=== PATIENT | female | born 1985 | race African-American/Black ===

== ENCOUNTER 2016-10-12 12:10 | Emergency (ER) ==
[2016-10-12 12:16] VITALS: BP 152/86; TEMP 98.9; BMI 47.9
--- NOTE | 2016-10-12 12:25 | ED.PDOC ---
General ED Provider: Dr. SHARIF ALANIZ JR Chief Complaint: Headache Stated Complaint: onset sore throat--after work yesterday developed sore throat- -headache and hot flashes-feel like sinuses are draining all the time headache/ sore throat[End]3 days 98.9 80 20 98% 152/86 06/28 Time Seen by Physician: 12:23 Mode of Arrival: Walk-In Information Source: Patient Exam Limitations: No limitations Primary Care Provider: VLADIMIR HEARN Nursing and Triage Documentation Reviewed and Agree: No Review of Systems - Review Of Systems Constitutional: Reports: Fever, Malaise, Weakness Eyes: Reports: No symptoms Ears, Nose, Mouth, Throat: Reports: No symptoms Respiratory: Reports: Cough Cardiac: Reports: No symptoms : Reports: No symptoms Musculoskeletal: Reports: Muscle pain Skin: Reports: No symptoms Neurological: Reports: Headache Endocrine: Reports: No symptoms Hematologic/Lymphatic: Reports: No symptoms All Other Systems: Other Past Medical History - Past Medical History Previously Healthy: Yes Endocrine: Reports: DM 2, Hypothyroid Cardiovascular: Reports: None Respiratory: Reports: None Hematological: Reports: None Gastrointestinal: Reports: None Genitourinary: Reports: None Neuro/Psych: Reports: None Musculoskeletal: Reports: None Cancer: Reports: None Last Menstrual Period: last week Other Pertinent Past Medical History: B-12 DEFIECIENCY - Surgical History General Surgical History: Reports: (D&C), Orthopedic (, D&C, right carpal tunnel. B-12 DEFIECIENCY dm thy), Unknown - Family History Family History: Reports: Unknown - Social History Smoking Status: Never smoker Hx Substance Use: No Alcohol Screening: None Physical Exam - Physical Exam Appearance: Ill-appearing, Obese Ill-appearing: Moderate Pain Distress: Moderate Eyes: BRENNON, EOMI, Conjunctiva clear ENT: Ears normal (sinus tenderness), Nose normal, Oropharynx normal Neck: Supple Respiratory: Airway patent, Breath sounds clear, Breath sounds equal, Respirations nonlabored Cardiovascular: RRR, Pulses normal, No rub, No murmur GI/: Soft, Nontender, No masses, Bowel sounds normal, No Organomegaly Musculoskeletal: Normal strength, ROM intact, No edema, No calf tenderness Skin: Warm, Dry, Normal color Neurological: Sensation intact, Motor intact, Reflexes intact, Cranial nerves intact, Alert, Oriented Psychiatric: Affect appropriate, Mood appropriate Critical Care Note - Critical Care Note Total Time (mins): 0 Course - Course Orders, Labs, Meds: Lab Review 10/12/16 10/12/16 12:27 12:40 Urine Test Negative Influenza A (Rapid) Negative Influenza B (Rapid) Negative Orders Category Date Time Status ACCUCHECK (ED) [ED ACCUCHECK ASSESSMENT] .ONCE EMERGENCY 10/12/16 12:44 Active ACCUCHECK Stat LAB 10/12/16 12:33 Stop Req MOLECULAR GROUP A STREP Stat LAB 10/12/16 12:30 Results TEST URINE [URINE ] Stat LAB 10/12/16 12:40 Completed RAPID FLU A/B Stat LAB 10/12/16 12:27 Completed STREP SCREEN Stat LAB 10/12/16 12:[address] HEAD W/O CONTRAST Stat RADS 10/12/16 12:31 Completed Vital Signs: Temp Pulse Resp BP Pulse Ox 10/12/16 12:12 98.9 F 80 20 152/86 H 98 Departure - Departure Time of Disposition: 13:56 Disposition: HOME SELF-CARE Discharge Problem: Headache, URTI (acute upper respiratory infection) Sinusitis, acute Qualifiers: Sinusitis location: unspecified location Recurrence: not specified as recurrent Qualifier Code: (J01.90) Acute sinusitis, unspecified Instructions: Sinusitis (ED), Upper Respiratory Infection (ED) Condition: Good Pt referred to PMD for follow-up: Yes Additional Instructions: antihistamine decongestant for congestion cough medication as needed increase fluids may return to work when no fever for 12 hours Prescriptions: Naproxen [Naprosyn] 500 mg PO Q12HR PRN #30 tablet PRN Reason: PAIN Guaifenesin/Codeine Phosphate [Robitussin AC Syrup] 10 ml PO Q6H PRN #240 ml PRN Reason: Cough Loratadine/Pseudoephedrine [Claritin-D 12 Hour Tablet] 1 each PO BID PRN #60 tab.er.12h PRN Reason: Allergy Symptoms Allergies/Adverse Reactions: Allergies No Known Allergies Allergy (Verified 10/12/16 12:17) Home Medications: Ambulatory Orders Cyanocobalamin (Vitamin B-12) [Vitamin B-12] 1,000 mcg PO MONTHLY 05/29/14 Levothyroxine Sodium [Synthroid] 75 mcg PO QDAC 05/13/15 Metformin HCl [Glucophage] 1,000 mg PO DAILYWM 05/13/15 Sitagliptin Phosphate [Januvia] 25 mg PO DAILY 05/13/15 Control Pill 1 tab PO DAILY 08/28/16 Guaifenesin/Codeine Phosphate [Robitussin AC Syrup] 10 ml PO Q6H PRN #240 ml Loratadine/Pseudoephedrine [Claritin-D 12 Hour Tablet] 1 each PO BID PRN #60 tab.er.12h 10/12/16 Naproxen [Naprosyn] 500 mg PO Q12HR PRN #30 tablet 10/12/16
[2016-10-12 12:44] LABS: URINE PREGNANCY INTERNAL QC INTERNAL QC VALID
[2016-10-12 12:49] LABS: FLU INTERNAL QC INTERNAL QC VALID; RAPID FLU A NEGATIVE (NEGATIVE); RAPID FLU B NEGATIVE (NEGATIVE)
--- NOTE | 2016-10-12 13:49 | CT ---
EXAM: CT head without contrast HISTORY: Headache with frontal tenderness COMPARISON: None TECHNIQUE: Serial axial images of the brain were obtained from the skull base to the vertex without IV contrast. FINDINGS: The ventricles, cisterns and sulci are normal. The vines-white matter junction is maintai valerie. No midline shift or mass is identified. There is no abnormal intra or extra-axial fluid colle ction. The paranasal sinuses and mastoid air cells are clear. The osseous calvarium is intact. IMPRESSION: No acute intracranial abnormality or hemorrhage. If further evaluation is clinically in dicated, MRI may be obtained.
== END 2016-10-12 14:15 | disposition home or self-care (01) ==
LOC: ED 12:10
DX: J06.9 Acute upper respiratory infection, unspecified (principal); J01.90 Acute sinusitis, unspecified; E11.9 Type 2 diabetes mellitus without complications; Z79.84 Long term (current) use of oral hypoglycemic drugs; Z79.899 Other long term (current) drug therapy
CPT/HCPCS: 81025; 82962; 87651; 87804; 87880; 99283

== ENCOUNTER 2017-10-04 23:30 | Emergency (ER) ==
[2017-10-04 23:45] VITALS: TEMP 98.9; BMI 46.3
--- NOTE | 2017-10-05 00:30 | ED.PDOC ---
General ED Provider: Dr. JOHNNA SNOW Chief Complaint: Non-specific Complaint Stated Complaint: pateint states that she started feeling cramps on her feet and body . Not sure why. Has had it in the past but has not been see for it. She is diabetic and is on oral medications. Also complains of feeling flushed on her body. Denies any chest pain. Time Seen by Physician: 00:27 Mode of Arrival: Walk-In Information Source: Patient Exam Limitations: No limitations Primary Care Provider: VLADIMIR HEARN Nursing and Triage Documentation Reviewed and Agree: Yes Reviewed sepsis parameters & appropriate labs ordered?: Yes System Inflammatory Response Syndrome: Not Applicable Sepsis Protocol: For patient's 13 years and over: Temp is 96.8 and below OR 101 and greater Pulse >90 BPM Resp >20/minute Acutely Altered Mental Status Are patient's symptoms suggestive of a new infection, such as: -Pneumonia -Skin, Soft Tissue -Endocarditis -UTI -Bone, Joint Infection -Implantable Device -Acute Abdominal Infection -Wound Infection -Meningitis -Blood Stream Catheter Infection -Unknown System Inflammatory Response Syndrome: Not Applicable Miscellaneous Complaint Exam - Complex/Multi-System Complaint/Exam Onset/Duration: 3 hours Symptoms Are: Still present Initial Severity: Moderate Current Severity: Mild Location of Pain: feel and hands Character: cramping on feet and upper ext Aggravating: movement Alleviating: nothing Associated Signs and Symptoms: Denies: Decreased responsiveness, Confusion, Agitation, Dizziness, Weakness, Syncope, Headache, Short of air, Cough, Wheezing , Hemoptysis, Chest pain, Palpitations, Edema, Nausea, Vomiting, Diarrhea, Abdominal pain, Back pain, Dysuria, Hematemesis, Melena, Decreased oral intake, Fever, Diaphoresis, Immunocompromised, Anticoagulation Therapy, Recent medication changes, Indwelling medical doctor, Prior MRSA, Prior VRE, Recent trauma, Remote trauma Respiratory Distress: None JVD Present: No Tachypnea Present: No Stridor Present: No Abdominal Findings: Present: Normal findings Glascow Coma Scale (see protocol): 15 Meningeal Signs Positive: No Focal Weakness: Present: None Focal Sensory Loss: Present: None Gait: Normal Gag Reflex Present: No Babinski Sign: Negative Right, Negative Left Joint Swelling Present: No In-Dwelling Device Present: No Review of Systems - Review Of Systems Constitutional: Reports: No symptoms Eyes: Reports: No symptoms Ears, Nose, Mouth, Throat: Reports: No symptoms Respiratory: Reports: No symptoms Cardiac: Reports: No symptoms GI: Reports: No symptoms : Reports: No symptoms Musculoskeletal: Reports: Other (muscle cramps. ) Skin: Reports: No symptoms Neurological: Reports: No symptoms Endocrine: Reports: No symptoms Hematologic/Lymphatic: Reports: No symptoms All Other Systems: Reviewed and Negative Past Medical History - Past Medical History Previously Healthy: Yes Endocrine: Reports: DM 2, Hypothyroid Cardiovascular: Reports: None Respiratory: Reports: None Hematological: Reports: None Gastrointestinal: Reports: None Genitourinary: Reports: None Neuro/Psych: Reports: None Musculoskeletal: Reports: None Cancer: Reports: None Last Menstrual Period: now Other Pertinent Past Medical History: B-12 DEFIECIENCY - Surgical History General Surgical History: Reports: (D&C), Orthopedic (, D&C, right carpal tunnel. B-12 DEFIECIENCY dm thy), Unknown - Family History Family History: Reports: Unknown - Social History Smoking Status: Never smoker Hx Substance Use: No Alcohol Screening: None - Immunizations Tetanus Shot up to Date: Yes Physical Exam - Physical Exam Appearance: Well-appearing, Obese Pain Distress: Mild Eyes: BRENNON, EOMI, Conjunctiva clear Respiratory: Airway patent, Breath sounds clear, Breath sounds equal, Respirations nonlabored Cardiovascular: RRR, Pulses normal, No rub, No murmur GI/: Soft, Nontender, No masses, Bowel sounds normal, No Organomegaly Musculoskeletal: Normal strength, ROM intact, No edema, No calf tenderness Skin: Warm, Dry, Normal color Neurological: Sensation intact, Motor intact, Reflexes intact, Cranial nerves intact, Alert, Oriented Psychiatric: Anxious Critical Care Note - Critical Care Note Total Time (mins): 0 Course - Course Orders, Labs, Meds: Lab Review 10/05/17 00:05 Influenza A (Rapid) Negative by naat Influenza B (Rapid) Negative by naat Orders Category Date Time Status COMPREHENSIVE METABOLIC PANEL Stat LAB 10/05/17 00:30 Received FLU A/B MOLECULAR Stat LAB 10/05/17 00:05 Completed MAGNESIUM Stat LAB 10/05/17 00:30 Received MOLECULAR GROUP A STREP Stat LAB 10/05/17 00:05 Completed THYROID STIMULATING HORMONE Stat LAB 10/05/17 00:30 Received Vital Signs: Temp Pulse Resp BP Pulse Ox 10/04/17 23:36 98.9 F 89 20 169/88 H 98 Departure - Departure Time of Disposition: 01:26 Disposition: HOME SELF-CARE Discharge Problem: Cramping of hands, Muscle cramps Instructions: Leg Cramps (ED), Muscle Cramp (ED) Condition: Stable Pt referred to PMD for follow-up: Yes IPMP verified?: No Additional Instructions: Take medications as needed for cramps Push fluids Follow up with PCP in 3 days. Prescriptions: Cyclobenzaprine HCl [Flexeril] 5 mg PO TID PRN #20 tablet PRN Reason: Spasms Allergies/Adverse Reactions: Allergies No Known Allergies Allergy (Verified 10/12/16 12:17) Home Medications: Ambulatory Orders Cyanocobalamin (Vitamin B-12) [Vitamin B-12] 1,000 mcg PO MONTHLY 05/29/14 Levothyroxine Sodium [Synthroid] 75 mcg PO QDAC 05/13/15 Metformin HCl [Glucophage] 1,000 mg PO DAILYWM 05/13/15 Sitagliptin Phosphate [Januvia] 25 mg PO DAILY 05/13/15 Control Pill 1 tab PO DAILY 08/28/16 Guaifenesin/Codeine Phosphate [Robitussin AC Syrup] 10 ml PO Q6H PRN #240 ml Loratadine/Pseudoephedrine [Claritin-D 12 Hour Tablet] 1 each PO BID PRN #60 tab.er.12h 10/12/16 Naproxen [Naprosyn] 500 mg PO Q12HR PRN #30 tablet 10/12/16 Cyclobenzaprine HCl [Flexeril] 5 mg PO TID PRN #20 tablet 10/05/17 Disposition Discussed With: Patient, Family
[2017-10-05 01:56] VITALS: BP 118/92
== END 2017-10-05 02:00 | disposition home or self-care (01) ==
LOC: ED 23:30
DX: R25.2 Cramp and spasm (principal); R23.2 Flushing
CPT/HCPCS: 36415; 80053; 83735; 84443; 87502; 87651; 99283

== ENCOUNTER 2018-10-11 17:12 | Emergency (ER) ==
[2018-10-11 17:16] VITALS: TEMP 97.1; BMI 45.6
[2018-10-11 17:48] LABS: URINE PREGNANCY TEST NEGATIVE (NEGATIVE)
--- NOTE | 2018-10-11 18:18 | CT ---
EXAM: CT sinuses/facial bones without contrast HISTORY: Right jaw pain of concern for abscess. Patient reports popping abscess under the chin. COMPARISON: CT maxillofacial 01/05/2012 TECHNIQUE: Serial axial images of the facial bones/sinuses were obtained without IV contrast. These were viewed in coronal, sagittal and axial planes. FINDINGS: Dental amalgam limits this evaluation limits this evaluation. Intracranial contents are n ormal. The orbital globes retrobulbar structures are normal. Paranasal sinuses are clear. The soft tissues are unremarkable. There is a right submandibular prominent lymph node measuring 0.8 cm in d iameter. Additional prominent right-sided lymph nodes are present. There is no focal fluid collecti on or evidence of abscess. The osseous structures demonstrate no focal lytic or blastic lesion on th is examination with limitations due to dental amalgam. There is mild scattered paranasal sinus mucos al thickening. IMPRESSION: 1. No visualized abscess or fluid collection. Few prominent right-sided lymph nodes are likely reac tive. 2. Dental amalgam limits this evaluation with no acute osseous abnormality identified. 3. Mild scattered mucosal thickening of the paranasal sinuses.
[2018-10-11 18:35] VITALS: BP 148/99
--- NOTE | 2018-11-03 10:10 | ED.PDOC ---
General ED Provider: Dr. SEN GARCIA Chief Complaint: Abscess Stated Complaint: abcess on the chin Time Seen by Physician: 17:17 (seen with nurse ) Mode of Arrival: Walk-In Information Source: Patient Exam Limitations: No limitations Primary Care Provider: VLADIMIR HEARN Nursing and Triage Documentation Reviewed and Agree: Yes Does patient meet sepsis criteria?: No System Inflammatory Response Syndrome: Not Applicable Sepsis Protocol: For patient's 13 years and over: Temp is 96.8 and below OR 101 and greater Pulse >90 BPM Resp >20/minute Acutely Altered Mental Status Are patient's symptoms suggestive of a new infection, such as: -Pneumonia -Skin, Soft Tissue -Endocarditis -UTI -Bone, Joint Infection -Implantable Device -Acute Abdominal Infection -Wound Infection -Meningitis -Blood Stream Catheter Infection -Unknown Skin Complaint Exam - Skin/Soft Tissue Complaint/Exam Onset/Duration: abcess chin see photos Symptoms Are: Still present Timing: Constant Initial Severity: Mild Current Severity: Mild Character: Reports: Swelling, Painful Aggravating: Reports: None Alleviating: Reports: None Associated Signs and Symptoms: Denies: Fever, Chills, Itching, Drainage, Bruising, Tenderness, Red streaks, Joint swelling Related Surgical History: Reports: None Recent Exposure to Others w/Similar Symptoms: No Skin Findings: Present: Pustules Joint Tenderness Present: No Differential Diagnoses: Abscess Review of Systems - Review Of Systems Constitutional: Reports: No symptoms Eyes: Reports: No symptoms Ears, Nose, Mouth, Throat: Reports: No symptoms Respiratory: Reports: No symptoms Cardiac: Reports: No symptoms GI: Reports: No symptoms : Reports: No symptoms Musculoskeletal: Reports: No symptoms Skin: Reports: Other (abscess see photo) Neurological: Reports: No symptoms Endocrine: Reports: No symptoms Hematologic/Lymphatic: Reports: No symptoms All Other Systems: Reviewed and Negative Past Medical History - Past Medical History Previously Healthy: Yes Endocrine: Reports: DM 2, Hypothyroid Cardiovascular: Reports: None Respiratory: Reports: None Hematological: Reports: None Gastrointestinal: Reports: None Genitourinary: Reports: None Neuro/Psych: Reports: None Musculoskeletal: Reports: None Cancer: Reports: None Last Menstrual Period: tuesday Other Pertinent Past Medical History: B-12 DEFIECIENCY - Surgical History General Surgical History: Reports: (D&C), Orthopedic (, D&C, right carpal tunnel. B-12 DEFIECIENCY dm thy), Unknown - Family History Family History: Reports: Unknown - Social History Smoking Status: Never smoker Hx Substance Use: No Alcohol Screening: None Physical Exam - Physical Exam Appearance: Well-appearing, No pain distress, Well-nourished Eyes: BRENNON, EOMI, Conjunctiva clear ENT: Ears normal, Nose normal, Oropharynx normal Respiratory: Airway patent, Breath sounds clear, Breath sounds equal, Respirations nonlabored Cardiovascular: RRR, Pulses normal, No rub, No murmur GI/: Soft, Nontender, No masses, Bowel sounds normal, No Organomegaly Musculoskeletal: Normal strength, ROM intact, No edema, No calf tenderness Skin: Warm, Dry (1 cm pustule on the chin see photo) Neurological: Sensation intact, Motor intact, Reflexes intact, Cranial nerves intact, Alert, Oriented Psychiatric: Affect appropriate, Mood appropriate Critical Care Note - Critical Care Note Total Time (mins): 0 Course - Course Orders, Labs, Meds: Lab Review 10/11/18 17:40 Urine Test Negative Orders Category Date Time Status URINE Stat LAB 10/11/18 17:[address] MAXILLOFACIAL W/O CONTRAST Stat RADS 10/11/18 17:22 Completed Vital Signs: Temp Pulse Resp BP Pulse Ox 10/11/18 18:35 148/99 H 10/11/18 17:13 97.1 F L 91 H 20 164/111 H 98 Departure - Departure Time of Disposition: 19:00 Disposition: HOME SELF-CARE Discharge Problem: Abscess Instructions: Abscess (ED) Condition: Good Pt referred to PMD for follow-up: Yes IPMP verified?: No Additional Instructions: bactrim ds twice a day for 5 days #10 Allergies/Adverse Reactions: Allergies No Known Allergies Allergy (Verified 10/11/18 17:16) Home Medications: Ambulatory Orders Cyanocobalamin (Vitamin B-12) [Vitamin B-12] 1,000 mcg PO MONTHLY 05/29/14 Control Pill 1 tab PO DAILY 08/28/16 Norgestimate-Ethinyl Estradiol [Sprintec 28 Day Tablet] 1 each PO DAILY
== END 2018-10-11 18:35 | disposition home or self-care (01) ==
LOC: ED 17:12
DX: L02.01 Cutaneous abscess of face (principal)
CPT/HCPCS: 81025; 99283

== ENCOUNTER 2018-10-17 15:47 | Outpatient (CLI) | END 2018-10-17 15:48 | disposition home or self-care (01) | LOC: RHC-LAB 15:47 | PROVIDERS: ATTEND Nurse Practitioner Family | DX: E11.9 Type 2 diabetes mellitus without complications (principal); E03.9 Hypothyroidism, unspecified | CPT/HCPCS: 36415; 80053; 80061; 83036; 84443; 85025 ==

== ENCOUNTER 2019-01-10 08:00 | Outpatient (CLI) | END 2019-01-10 08:01 | disposition home or self-care (01) | LOC: RHC-LAB 08:00 | PROVIDERS: ATTEND Nurse Practitioner Family | DX: E11.9 Type 2 diabetes mellitus without complications (principal); E03.9 Hypothyroidism, unspecified | CPT/HCPCS: 36415; 80053; 83036; 84443 ==

== ENCOUNTER 2019-03-07 13:36 | Outpatient (CLI) | END 2019-03-07 13:37 | disposition home or self-care (01) | LOC: RHC-LAB 13:36 | PROVIDERS: ATTEND Nurse Practitioner Family | DX: J02.9 Acute pharyngitis, unspecified (principal) | CPT/HCPCS: 87651 ==

== ENCOUNTER 2025-01-30 18:55 | Observation (INO) ==
[2025-01-30 19:26] LABS: BASOPHILS % (AUTO) 0.6 % (0.0-3.0); EOSINOPHILS # (AUTO) 0.1 K/ul (0.0-0.7); EOSINOPHILS % (AUTO) 1.3 % (0.0-7.0); HEMATOCRIT 35.8 % (37.0-47.0); IMMATURE GRANULOCYTE % (AUTO) 0.3 % (0.0-5.0); LYMPHOCYTES # (AUTO) 2.8 K/uL (0.60-3.4); LYMPHOCYTES % (AUTO) 39.3 (10.0-50.0); MEAN CORPUSCULAR HEMOGLOBIN 27.5 pg (27.0-31.0); MEAN CORPUSCULAR HGB CONC 33.5 (31.8-35.4); MEAN CORPUSCULAR VOLUME 82.1 fl (81.0-99.0); MONOCYTES # (AUTO) 0.4 K/uL (0.4-2.0); MONOCYTES % (AUTO) 5.9 (0-10); NEUTROPHILS # (AUTO) 3.7 K/ul (2.0-6.9); NEUTROPHILS % (AUTO) 52.6 % (42.2-75.2); PLATELET COUNT 347 10^3/uL (140-440); RDW COEFFICIENT OF VARIATION 14.2 % (11.6-14.8); RED BLOOD COUNT 4.36 10^6/ul (4.20-5.40); WHITE BLOOD COUNT 6.99 K/ul (4.6-10.2)
[2025-01-30] MEDS ORDERED: MORPHINE 4 MG/ML SYRINGE IVP PRN (19:29)
[2025-01-30] MEDS ORDERED: ZOFRAN SDV IVP PRN (19:29)
--- NOTE | 2025-01-30 19:36 | ED.PDOC ---
General ED Provider: Dr. LINETTE ALCAZAR DO Chief Complaint: Abnormal Labs Stated Complaint: 39-year-old female presents to the ER after being called from her primary provider about low potassium at 2.6. She had some routine labs done there earlier today. The patient is being seen in follow-up after she had been in the emergency department several times and subsequently was seen at [place] and had a gastric emptying test as well as colonoscopy and endoscopy. The results of this was H. pylori infection. She was unable to start her medications because of her insurance. She says that it did not her. Throughout this timeframe, she was unable to eat or drink very well. She was seen in this ER several times by me. She reports several episodes of vomiting as well. She currently denies any headache chest pain or shortness of breath or abdominal pain. Her and her primary provider have apparently worked out ideas for getting her the proper medication for her H. pylori treatment Time Seen by Provider: 01/30/25 18:56 Information Source: Patient Primary Care Provider: SHILA SUMNER APRN Nursing and Triage Documentation Reviewed and Agree: Yes What is Opioid Naive?: *Opioid Naive implies the patient is not already taking opioids or not chronically receiving opioids on a daily basis. *PRN dosing is not "usually" associated with tolerance. *Patients are at higher risk of over-sedation and aspiration. What is Opioid Tolerant?: *Opioid Tolerance implies less than the expected response to an opioid. *Acquired tolerance is defined by the patient taking 60mg of oral morphine daily (or equianalgesic dose of another opioid) for 1 week or more. *Often associated with chronic pain. *May take more than usual dose to achieve desired pain control. Review of Systems Review Of Systems Constitutional: Reports No symptoms All Other Systems: Reviewed and Negative FOR[facility]LY [facility], [facility] Family History Mother Hyperlipidemia FATHER Hyperthyroidism Kidney disorder Requires dialysis Hypertension Social History Smoking and tobacco status: Never smoker Second hand smoke exposure: Yes Alcohol intake: current Substance use type: marijuana Carly/mormon: None Special carly needs: No Agree to transfusion: Yes Adopted: No Caregiver/support person: No Household members: children Housing: house Lives independently: Yes Highest education level completed: high school graduate Financial difficulty paying for basics: not applicable service: No Current occupational status: employed Current occupation: [employer] Current occupational exposures/hazards: Yes Pets and animals: No Leisure activites: other History of recent travel: No Sexually active: Yes Do you think of yourself as: straight/heterosexual Current gender identity: female Seatbelt use: always Helmet use: No Drives intoxicated or rides with intoxicated tour bus driver/guide: No Water heater temperature set < 120 degrees: Yes Working smoke detector in home: Yes Fire extinguisher in home: No Carbon monoxide detector in home: Yes Firearms in home: No Surgical History History of musculoskeletal system surgery Right hand, carpal surgery Z98.890 - Other specified postprocedural states (ICD-10) History of section Z98.891 - History of uterine scar from previous surgery (ICD-10) Female Reproductive History Menstrual Hx Hysterectomy: No Hx Tubal Ligation: No Physical Exam Physical Exam Appearance: Reports Well-appearing, No pain distress and Well-nourished Eyes: Reports BRENNON and EOMI ENT: Reports Oropharynx normal Neck: Supple Respiratory: Reports Airway patent and Respirations nonlabored Cardiovascular: Reports RRR and Pulses normal Musculoskeletal: Reports Normal strength and ROM intact Skin: Reports Warm, Dry and Normal color Neurological: Reports Sensation intact, Motor intact, Alert and Oriented Psychiatric: Reports Affect appropriate and Mood appropriate Interpretation EKG Interpretation EKG Interpretation By: ED Physician Time of EKG #1: 19:46 Rate: Normal (99) Rhythm: Sinus Ectopy: None [place]: Left ST Segment: Normal Interpretation: LVH possible, no stemi or acute ischemia Re-Evaluation Re-Evaluation Additional Comments: 39-year-old female sent to the emerged department by primary care providers for hypokalemia. Patient has had some difficulty recently with eating and drinking secondary to H. pylori infection. This could likely be a contributing factor to her low potassium. She is afebrile nontoxic doubt systemic infection. She denies any abdominal pain at this time, chest pain or shortness of breath. Doubt other acute intra-abdominal or cardiopulmonary process. Will screen her labs to check her renal function as well as her urine, magnesium, electrolytes to include potassium. Will begin repletion after initial results and discuss disposition planning with the patient who receives 2 not have a desire to be in the hospital currently. 2000: Urinalysis demonstrates unexpected bilirubin and blood present. This could be rhabdomyolysis. She also has a very low BUN to creatinine ratio which could be a intraparenchymal injury. Will continue to hydrate in addition to replating the electrolytes and recheck to assess for improvement and if discharge is feasible. 7: Patient's renal function is improved significantly with IV fluid. She tolerates p.o. She also has improved her potassium to 3.03. Given the gap of the potassium to normal, this would be more than I would normally do in the ER for discharge. I discussed this with the patient who expresses understanding and agreeable for admission Course Course 01/30/25 19:20 01/30/25 21:40 Orders, Labs, Meds: Lab Review 01/30/25 01/30/25 01/30/25 19:20 19:30 20:25 WBC 6.99 RBC 4.36 Hgb 12.0 Hct 35.8 L MCV 82.1 MCH 27.5 MCHC 33.5 RDW Coeff of Subhash 14.2 Plt Count 347 Immature Gran % (Auto) 0.3 Neut % (Auto) 52.6 Lymph % (Auto) 39.3 King % (Auto) 5.9 Eos % (Auto) 1.3 Baso % (Auto) 0.6 Neut # (Auto) 3.7 Lymph # (Auto) 2.8 King # (Auto) 0.4 Eos # (Auto) 0.1 Baso # (Auto) 0.0 Immature Gran # (Auto) 0.0 Sodium 135.0 Potassium 2.70 L* Chloride 97.0 L Carbon Dioxide 29.0 Anion Gap 11.70 BUN 6.0 L Creatinine 1.70 H Estimated GFR (MDRD) 41.00 BUN/Creatinine Ratio 3.52 Glucose 246.0 H Calcium 9.30 Magnesium 1.40 L Total Bilirubin 0.80 AST 32.0 ALT 16.0 Alkaline Phosphatase 78.0 Total Creatine Kinase 103.7 Troponin I < 0.012 Total Protein 8.20 Albumin 4.30 Globulin 3.90 Albumin/Globulin Ratio 1.10 Urine Color Yellow Urine Clarity Slightly Urine pH 6.0 Ur Specific [place] >=1.030 Urine Protein 3+ H Urine Glucose (UA) Trace H Urine Ketones 1+ H Urine Blood Negative Urine Nitrite Negative Urine Bilirubin 2+ H Urine Urobilinogen 1.0 H Ur Leukocyte Esterase 1+ H Urine Microscopic RBC 0-2 Urine Microscopic WBC 20-30 Ur Squamous Epith Cells 20-30 Urine Bacteria Trace Urine Mucus 1+ Urine Test Negative 01/30/25 21:40 WBC RBC Hgb Hct MCV MCH MCHC RDW Coeff of Subhash Plt Count Immature Gran % (Auto) Neut % (Auto) Lymph % (Auto) King % (Auto) Eos % (Auto) Baso % (Auto) Neut # (Auto) Lymph # (Auto) King # (Auto) Eos # (Auto) Baso # (Auto) Immature Gran # (Auto) Sodium 136.6 Potassium 3.03 L Chloride 100.2 Carbon Dioxide 26.1 Anion Gap 13.33 BUN 5.7 L Creatinine 1.18 D Estimated GFR (MDRD) 62.00 BUN/Creatinine Ratio 4.83 Glucose 199.9 H Calcium 8.65 Magnesium Total Bilirubin AST ALT Alkaline Phosphatase Total Creatine Kinase Troponin I Total Protein Albumin Globulin Albumin/Globulin Ratio Urine Color Urine Clarity Urine pH Ur Specific [place] Urine Protein Urine Glucose (UA) Urine Ketones Urine Blood Urine Nitrite Urine Bilirubin Urine Urobilinogen Ur Leukocyte Esterase Urine Microscopic RBC Urine Microscopic WBC Ur Squamous Epith Cells Urine Bacteria Urine Mucus Urine Test Orders Category Date Time Status EKG-(ED ONLY) Stat CARDIO 01/30/25 19:17 Completed IV [ED IV/MEDIPORT/POWERPORT] .ONCE EMERGENCY 01/30/25 19:17 Active BMP [BASIC METABOLIC PANEL] Stat LAB 01/30/25 21:40 Completed CBC W/ AUTO DIFF Stat LAB 01/30/25 19:20 Completed CMP [COMPREHENSIVE METABOLIC PANEL] Stat LAB 01/30/25 19:20 Completed CREATINE KINASE Stat LAB 01/30/25 20:25 Completed MAGNESIUM Stat LAB 01/30/25 19:20 Completed OSMOLALITY,URINE Stat LAB 01/30/25 19:35 Received TROPONIN I Stat LAB 01/30/25 19:20 Completed URINALYSIS C & S IF INDICATED Stat LAB 01/30/25 19:30 Completed URINALYSIS C & S IF INDICATED Stat LAB 01/30/25 21:36 Uncollected URINE CULTURE Stat LAB 01/30/25 19:30 Received URINE Stat LAB 01/30/25 19:30 Completed 0.9 % Sodium Chloride [Saline Flush] Meds 01/30/25 19:16 Active 1 syr IVF PRN PRN Famotidine Inj [Pepcid] Meds 01/30/25 19:51 Discontinued 20 mg IVP ONCE ONE Magnesium Sulfate [Magnesium Sulfate 1 gm/2 ml Vial] Meds 01/30/25 19:57 Discontinued 1 gm IVP ONCE ONE Potassium Chloride [K-Dur] Meds 01/30/25 19:51 Discontinued 40 meq PO ONCE STA Potassium Chloride [Potassium Chloride 10 Meq/100 ml Meds 01/30/25 19:56 Discontinued Premix] 10 meq in 100 ml IV ONCE Sodium Chloride 0.9% [Sodium Chloride] 1,000 ml Meds 01/30/25 19:51 Discontinued IV BOLUS CHEST, 1V AP ONLY Stat RADS 01/30/25 19:17 Completed Medications Generic Name Dose Route Start Last Admin Trade Name Freq PRN Reason Stop Dose Admin Sodium Chloride 1 syr 01/30/25 19:16 0.9% Sodium Chloride 10 Ml Disp.Syrin IVF PRN PRN To flush IV Discontinued Medications Generic Name Dose Route Start Last Admin Trade Name Freq PRN Reason Stop Dose Admin Famotidine 20 mg 01/30/25 19:51 01/30/25 20:18 Famotidine Inj 20 Mg/2 Ml Vial IVP 01/30/25 19:52 20 mg ONCE ONE Administration Sodium Chloride 1,000 mls @ 1,000 mls/hr 01/30/25 19:51 01/30/25 21:18 Sodium Chloride IV 01/30/25 20:50 Infused BOLUS ONE Infusion Potassium Chloride 10 meq in 100 mls @ 100 mls/hr 01/30/25 19:56 01/30/25 20:18 Potassium Chloride 10 Meq/100 Ml Premix IV 01/30/25 20:55 100 mls/hr ONCE ONE Administration Magnesium Sulfate 1 gm 01/30/25 19:57 01/30/25 20:18 Magnesium Sulfate Vial 1 Gm/2 Ml Vial IVP 01/30/25 19:58 1 gm ONCE ONE Administration Potassium Chloride 40 meq 01/30/25 19:51 01/30/25 20:18 Potassium Chloride 20 Meq Tab PO 01/30/25 19:52 40 meq ONCE STA Administration Vital Signs: Temp Pulse Resp BP Pulse Ox 01/30/25 19:02 97.4 F L 110 H 16 110/72 100 Discharge Plan Discharge Patient Disposition: PLACED OBSERVATION Discharge Problem: Acute kidney injury, Acute hypokalemia, Hypomagnesemia Instructions: Acute Kidney Injury (DC), Hypokalemia (ED), Hypomagnesemia (ED) Prescriptions: New potassium citrate 15 mEq tablet extended release 15 meq PO BID Qty: 20 0RF No Action ondansetron 4 mg tablet,disintegrating 4 mg PO Q8H PRN (Reason: nausea and vomiting) Qty: 30 0RF valsartan 160 mg tablet 160 mg PO DAILY Qty: 90 3RF levothyroxine 88 mcg tablet 88 mcg PO DAILY Qty: 90 3RF citalopram 10 mg tablet 10 mg PO DAILY Qty: 90 1RF pantoprazole [Protonix] 40 mg tablet,delayed release (DR/EC) 40 mg PO BID Qty: 60 1RF medroxyprogesterone 150 mg/mL suspension 150 mg IM [id number] Patient Comments: INJECT 1 ML INTO THE APPROPRIATE MUSCLE DIRECTED BY PRESCRIBER EVERY 3 (THREE) MONTHS. ondansetron 4 mg tablet,disintegrating 4 mg PO Q6H PRN (Reason: nausea and vomiting) Qty: 30 0RF [place] [place] Omnipod 5 G6-G7 Pods (Gen 5) Cartridge 1 ea subcut Q3D insulin lispro [Humalog KwikPen Insulin] 100 unit/mL insulin pen 2.5 unit subcut .COMPLEX Patient Comments: this is actually given as 3.5 units continuously per hour through omnipod and she gives herself boluses per carb counting, max of 45 units tid with meals Rx Instructions: this is actually given as 3.5 units continuously per hour through omnipod and she gives herself boluses per carb counting, max of 45 units tid with meals [place] [place] Dexcom G6 Transmitter Device See Rx Instructions .ROUTE Qty: 1 0RF Rx Instructions: As directed amlodipine 5 mg tablet 5 mg PO QDAY Qty: 90 0RF Rx Instructions: dr francois [place] [place] Dexcom G6 Sensor Device See Rx Instructions .ROUTE Qty: 3 0RF Rx Instructions: As directed fluticasone propionate 50 mcg/actuation spray,suspension 1 spray intranasal QDAY 30 Days Qty: 16 1RF Rx Instructions: administer into each nostril metformin 1,000 mg tablet 500 mg PO QDAY Qty: 180 1RF tetracycline 500 mg capsule 500 mg PO QDAY 14 Days Qty: 14 0RF metronidazole 500 mg tablet 500 mg PO QID Qty: 56 0RF buspirone 10 mg tablet 10 mg PO BID Qty: 60 1RF bismuth subsalicylate 262 mg tablet,chewable 2 tab PO QID 14 Days Qty: 112 0RF Did you review [place] [employer] LAW[employer]ER for ALL controlled substances?: Not Applicable Discussed opioids are addictive and Narcan is available by prescription or from pharmacy.: No Activity Restrictions/Additional Instructions: Your potassium was very low today as well as mildly low magnesium. This is concerning because your kidney function has changed from prior labs that we have for comparison. This may be a component of you being recently ill and all the vomiting you reported, but it is imperative for you to follow-up for repeat laboratory testing to track these appropriately as you received the proper treatment for your H. pylori. We discussed hospitalization versus discharge today, and reviewed return precautions. Please return to the ER if you have any symptoms whatsoever especially anything to include but not limited to headache, shortness of breath, chest pain, heart palpitations, generalized weakness or other concerns. ED Provider: LINETTE ALCAZAR Referrals: SHILA SUMNER APRN [Primary Care Provider] - Condition: Stable Physician Progress Note: All EKGs and plain film imaging independently reviewed and interpreted by me unless stated otherwise. CTs interpreted by radiology unless otherwise stated. All pediatric patients are accompanied by parent or legal guardian as primary historian and/or validate patient report unless otherwise stated.
[2025-01-30 19:43] LABS: URINE PREGNANCY TEST NEGATIVE (NEGATIVE)
[2025-01-30 19:44] LABS: BILIRUBIN,URINE 2+ (NEGATIVE); CLARITY,URINE Slightly (CLEAR); COLOR,URINE Yellow (YELLOW); GLUCOSE, URINE (UA) Trace (NEGATIVE); KETONES,URINE 1+ (NEGATIVE); LEUKOCYTE ESTERASE ,URINE 1+ (NEGATIVE); NITRITE,URINE Negative (NEGATIVE); PROTEIN,URINE 3+ (NEGATIVE); URINE, BLOOD Negative (NEGATIVE)
[2025-01-30 20:01] LABS: BACTERIA,URINE TRACE (NOT PRESENT); MUCUS,URINE 1+ (NOT PRESENT); SQUAMOUS EPITHELIAL CELL,UR 20-30 (0-5); URINE RBC, MICROSCOPIC 0-2 (0-2); URINE WBC, MICROSCOPIC 20-30 (0-2)
[2025-01-30 20:12] LABS: TROPONIN I < 0.012 ng/ml (0.0000-0.120)
[2025-01-30] MEDS: SODIUM CHLORIDE 1,000 ML IV ONE (20:18)
[2025-01-30] MEDS: POTASSIUM CHLORIDE 10 MEQ/100 ML PREMIX 10 MEQ/100 ML BAG IV ONE (20:18)
[2025-01-30] MEDS: MAGNESIUM SULFATE 1 GM/2 ML VIAL IVP ONE (20:18)
[2025-01-30] MEDS: PEPCID IVP ONE (20:18)
[2025-01-30] MEDS: K-DUR PO STA (20:18)
--- NOTE | 2025-01-30 20:48 | DI ---
EXAM: CHEST RADIOGRAPH TECHNIQUE: Single frontal chest radiograph. HISTORY: Shortness of breath. Chest pain COMPARISON: Chest single view 12/26/2024 FINDINGS: No change since the previous study. Cardiac silhouette, mediastinal size and pulmonary vasculature are normal. Moderately expanded lungs are clear. No infiltrates or acute process. IMPRESSION: No acute cardiopulmonary process or change since the previous study.
[2025-01-30 21:58] LABS: BLOOD UREA NITROGEN 5.7 mg/dL (7-17); CALCIUM 8.65 mg/dL (8.4-10.2); CARBON DIOXIDE 26.1 mmol/L (22-30.0); CHLORIDE 100.2 mmol/L (98-107); CREATININE 1.18 mg/dL (0.60-1.30); GLUCOSE 199.9 mg/dL (74-106); POTASSIUM 3.03 mmol/L (3.5-5.1); SODIUM 136.6 mmol/L (134.5-145)
[2025-01-31 09:23] LABS: CALCIUM 8.6 mg/dL (8.4-10.2); CREATININE 0.8 mg/dL (0.60-1.30)
[2025-01-31 09:31] VITALS: RESP 14; BMI 36.2
[2025-01-31 09:39] LABS: MAGNESIUM 1.74 mg/dL (1.6-2.3)
[2025-01-31] MEDS ORDERED: FLONASE NAS SCH (10:00)
[2025-01-31] MEDS: K-DUR PO ONE (10:10)
[2025-01-31] MEDS: NORVASC PO SCH (10:10)
[2025-01-31] MEDS: PROTONIX PO SCH (10:11)
[2025-01-31] MEDS: CELEXA PO SCH (10:11)
[2025-01-31] MEDS: MAGNESIUM SULF 2 G/50 ML BAG 2 GM/50 ML PIGGYBACK IV ONE (10:13)
--- NOTE | 2025-01-31 10:36 | PCM.SS ---
Provider Provider: LORI SUTTON PA-C, [facility] Admission Date Admission Date: 01/30/25 Discharge Date Discharge Date: 01/31/25 Primary Care Physician Primary Care Physician: SHILA SUMNER APRN Chief Complaint Reason For Visit: HYPOKALEMIA,KATHERINE,HYPOMAGNESEMIA History of Present Illness History of Present Illness: Admitted 01/31/25 06:17, this 39 year old AA/BLACK/F who presented to ER with abnormal outpatient labs. Patient had seen her PCP for regular follow up. She had routine labs done showing potassium of 2.6 and Cr 1.7. Patient denies any new medications. She states she's been having stomach issues since she was diagnosed with H pylori back in 2022 and was never able to be treated for it due to her insurance. She states she had a "flare up" last month but was not hospitalized. She states she vomits often but has not in the past week. In the ER she was given oral and IV potassium, a liter of fluid, and 1 gm mag. Her numbers improved but still not to normal. [facility]. Of note she states PCP has sent in antibiotics for H pylori, stomach meds, and an antianxiety medication for her yesterday after their appointment. [facility] Medical History Family history of thyroid problem Pt. reports she has Thyroid disease; takes med Z83.49 - Family history of other endocrine, nutritional and metabolic diseases (ICD-10) Surgical History History of musculoskeletal system surgery Right hand, carpal surgery Z98.890 - Other specified postprocedural states (ICD-10) History of section Z98.891 - History of uterine scar from previous surgery (ICD-10) Family History Mother Hyperlipidemia FATHER Hyperthyroidism Kidney disorder Requires dialysis Hypertension Social History Smoking and tobacco status: Never smoker Second hand smoke exposure: Yes Alcohol intake: current Substance use type: marijuana Carly/church: None Special carly needs: No Agree to transfusion: Yes Adopted: No Caregiver/support person: No Household members: children Housing: house Lives independently: Yes Highest education level completed: high school graduate Financial difficulty paying for basics: not applicable service: No Current occupational status: employed Current occupation: [employer] Current occupational exposures/hazards: Yes Pets and animals: No Leisure activites: other History of recent travel: No Sexually active: Yes Do you think of yourself as: straight/heterosexual Current gender identity: female Seatbelt use: always Helmet use: No Drives intoxicated or rides with intoxicated class a truck driver: No Water heater temperature set < 120 degrees: Yes Working smoke detector in home: Yes Fire extinguisher in home: No Carbon monoxide detector in home: Yes Firearms in home: No Medications Mecications: Medications at Discharge (Home Meds & RX) blood-glucose transmitter (Dexcom G6 Transmitter device) #1 ea 10/12/22 insulin lispro 100 unit/mL subcutaneous pen (Humalog KwikPen (U-100) Insulin) 2.5 unit subcut .COMPLEX 10/12/22 amlodipine 5 mg tablet 5 mg PO QDAY #90 tabs 07/07/23 blood-glucose sensor (Dexcom G6 Sensor device) #3 ea 07/07/23 medroxyprogesterone 150 mg/mL intramuscular suspension 150 mg IM [id number] 09/05/23 metformin 1,000 mg tablet 500 mg (1/2 x 1,000 mg) PO QDAY #180 tabs 07/18/24 ondansetron 4 mg disintegrating tablet 4 mg PO Q8H PRN nausea and vomiting #30 tabs 07/25/24 valsartan 160 mg tablet 160 mg PO DAILY #90 tabs 08/03/24 levothyroxine 88 mcg tablet 88 mcg PO DAILY #90 tabs 08/07/24 citalopram 10 mg tablet 10 mg PO DAILY #90 tabs 11/01/24 buspirone 10 mg tablet 10 mg PO BID #60 tabs 01/30/25 insulin pump cart,auto,BT,G6/7 (Omnipod 5 G6-G7 Pods (Gen 5) subcutaneous cartridge) 01/30/25 metronidazole 500 mg tablet 500 mg PO QID #56 tabs 01/30/25 potassium citrate 15 mEq (1,620 mg) tablet,extended release 15 meq PO BID #20 tabs 01/30/25 tetracycline 500 mg capsule 500 mg PO QDAY 14 days #14 caps 01/30/25 fluticasone propionate 50 mcg/actuation nasal spray,suspension 1 spray intranasal BID PRN nasal congestion 01/31/25 pantoprazole 40 mg tablet,delayed release (Protonix) 40 mg PO BID #60 tabs 01/31/25 Allergies Allergies Allergy/AdvReac Type Severity Reaction Status Date / Time No Known Allergies Allergy Verified 01/30/25 19:11 Review of Systems Constitutional: Denies Fever Head: Reports Normocephalic and Atraumatic Cardiovascular: Denies Chest pain, Chest Pressure or Edema Respiratory: Denies Cough or Shortness of air Gastrointestinal: Reports Nausea, Vomiting and Constipation Physical Examination Appearance: Positive Well-appearing, Well-nourished, No Apparent Distress and Alert and Oriented x3 Head: Positive Normocephalic and Atraumatic Neck: Positive Supple Heart: Positive RRR Respiratory: Positive Breath Sounds Clear, Bilaterally and Respirations Nonlabored; Negative Crackles, Rhonchi or Wheezes GI/: Positive Soft, Nontender, Bowel sounds normal and No Distention Extremities: Negative Edema Neurological: Positive Cranial nerves intact, Alert and Oriented Psychiatric: Positive Normal Judgement, Normal Insight, Affect Appropriate and Mood Appropriate Vital Signs (Last 4 Hours) Vital Signs Last 4 Hours: Vital Signs: Last 4 Hours 01/31/25 07:44 01/31/25 09:09 01/31/25 09:38 Temperature 97.1 F L Temperature Source Temporal Artery Scan Pulse Rate 92 94 Respiratory Rate 18 14 Blood Pressure 138/83 Blood Pressure Mean Blood Pressure Right Arm 158/95 Blood Pressure Location Blood Pressure Position Sitting O2 Sat by Pulse Oximetry 100 Oxygen Delivery Method Room Air Room Air Height 5 ft 8 in Weight 108.1 kg 01/31/25 10:00 Temperature 98.3 F Temperature Source Temporal Artery Scan Pulse Rate 91 Respiratory Rate 14 Blood Pressure 150/74 H Blood Pressure Mean 99 Blood Pressure Right Arm Blood Pressure Location Left Radial Artery Blood Pressure Position O2 Sat by Pulse Oximetry 100 Oxygen Delivery Method Room Air Height Weight Labs This Visit Labs This Visit: Labs This Visit 01/30/25 01/30/25 01/30/25 19:20 19:30 20:25 WBC 6.99 RBC 4.36 Hgb 12.0 Hct 35.8 L MCV 82.1 MCH 27.5 MCHC 33.5 RDW Coeff of Subhash 14.2 Plt Count 347 Immature Gran % (Auto) 0.3 Neut % (Auto) 52.6 Lymph % (Auto) 39.3 Evans % (Auto) 5.9 Eos % (Auto) 1.3 Baso % (Auto) 0.6 Neut # (Auto) 3.7 Lymph # (Auto) 2.8 Evans # (Auto) 0.4 Eos # (Auto) 0.1 Baso # (Auto) 0.0 Immature Gran # (Auto) 0.0 Sodium 135.0 Potassium 2.70 L* Chloride 97.0 L Carbon Dioxide 29.0 Anion Gap 11.70 BUN 6.0 L Creatinine 1.70 H Estimated GFR (MDRD) 41.00 BUN/Creatinine Ratio 3.52 Glucose 246.0 H Calcium 9.30 Magnesium 1.40 L Total Bilirubin 0.80 AST 32.0 ALT 16.0 Alkaline Phosphatase 78.0 Total Creatine Kinase 103.7 Troponin I < 0.012 Total Protein 8.20 Albumin 4.30 Globulin 3.90 Albumin/Globulin Ratio 1.10 Urine Color Yellow Urine Clarity Slightly Urine pH 6.0 Ur Specific Midway >=1.030 Urine Protein 3+ H Urine Glucose (UA) Trace H Urine Ketones 1+ H Urine Blood Negative Urine Nitrite Negative Urine Bilirubin 2+ H Urine Urobilinogen 1.0 H Ur Leukocyte Esterase 1+ H Urine Microscopic RBC 0-2 Urine Microscopic WBC 20-30 Ur Squamous Epith Cells 20-30 Urine Bacteria Trace Urine Mucus 1+ Urine Test Negative 01/30/25 01/31/25 21:40 09:08 WBC RBC Hgb Hct MCV MCH MCHC RDW Coeff of Subhash Plt Count Immature Gran % (Auto) Neut % (Auto) Lymph % (Auto) Evans % (Auto) Eos % (Auto) Baso % (Auto) Neut # (Auto) Lymph # (Auto) Evans # (Auto) Eos # (Auto) Baso # (Auto) Immature Gran # (Auto) Sodium 136.6 136.0 Potassium 3.03 L 3.00 L Chloride 100.2 101.0 Carbon Dioxide 26.1 26.0 Anion Gap 13.33 12.00 BUN 5.7 L 6.0 L Creatinine 1.18 D 0.80 Estimated GFR (MDRD) 62.00 97.00 BUN/Creatinine Ratio 4.83 7.50 Glucose 199.9 H 312.0 H D Calcium 8.65 8.60 Magnesium 1.74 Total Bilirubin AST ALT Alkaline Phosphatase Total Creatine Kinase Troponin I Total Protein Albumin Globulin Albumin/Globulin Ratio Urine Color Urine Clarity Urine pH Ur Specific Midway Urine Protein Urine Glucose (UA) Urine Ketones Urine Blood Urine Nitrite Urine Bilirubin Urine Urobilinogen Ur Leukocyte Esterase Urine Microscopic RBC Urine Microscopic WBC Ur Squamous Epith Cells Urine Bacteria Urine Mucus Urine Test Microbiology This Visit 01/30/25 19:30 Urine,Random Urine Culture - Preliminary Imaging Imaging: EXAM: CHEST RADIOGRAPH TECHNIQUE: Single frontal chest radiograph. HISTORY: Shortness of breath. Chest pain COMPARISON: Chest single view 12/26/2024 FINDINGS: No change since the previous study. Cardiac silhouette, mediastinal size and pulmonary vasculature are normal. Moderately expanded lungs are clear. No infiltrates or acute process. IMPRESSION: No acute cardiopulmonary process or change since the previous study. Review Review Statement: I have independently reviewed and interpreted the labs/EKGs/imaging that were ordered by the ER provider. I have reviewed all outside records that are available currently in our EMR including imaging/notes/labs from previous visits. Plan Reccomendations/Plan: 1. Acute hypokalemia, severe - Replace with oral and IV potassium, recheck bmp this afternoon 2. Hypomagnesemia - Replace with 2 gm mag rider 3. KATHERINE, stage I - resolved with fluids 4. H pylori - PCP has sent in abx for patient to start, pt states she was initially diagnosed in 2022 but never treated 5. DM - has insulin pump but states she is out of insulin since she came here, cover with humalog SS, diabetic diet 6. Hypothyroidism - Cont home meds 7. Hypertension - Cont home meds Patient has not had any n/v. States she hasn't had vomiting in over a week. Reviewed medications, no contributors to low potassium. Repeat K+ was 3.2, improved from 2.6 yesterday. Mag normal. Cr normal. The ER provider had already sent in potassium 15 meq bid. Will have patient take that and f/u with pcp for repeat labs. Patient agrees to plan of care. Discharge diagnoses: 1. Acute hypokalemia, improved 2. Hypomagnesemia, resolved 3. KATHERINE, stage I, resolved 4. H pylori 5. DM 6. Hypothyroidism 7. Hypertension Additional Planning: Case discussed with ED Physician, Dr. Nix. DVT Prophylaxis: Ambulation Advanced Care Plannin minutes spent discussing advance care planning. Admit to: Obs Discussed Plan of Care with Dr. Michael Cummins. Review With Patient Reviewed with Patient and Family: Patient and family have been counseled on condition and care plan and have no immediate questions. I have personally discussed and reviewed the patient's visit/current labs/imaging/decision making with Dr. Michael Cummins, my supervising attending. Total number of minutes spent with patient [85 ] min. More than 50% of the time spent with this patient was devoted to counseling and coordination of care. Time of Admission:01/31/25 06:17 Time of Discharge: 01/31/25 Discharge Plan Discharge Discharge Orders: Discharge Patient (ONCE); Ordered 01/31/25 Ordered By: LORI SUTTON Activity Restrictions/Additional Instructions: DISCHARGE TO HOME DX: HYPOKALEMIA, HYPOMAGNESEMIA, KATHERINE PUSH FLUIDS FOLLOW UP WITH PCP RETURN WITH WORSENING SYMPTOMS TAKE POTASSIUM SUPPLEMENT THAT WAS PRESCRIBED IN THE ER Instructions: Acute Kidney Injury (DC), Hypokalemia (ED), Hypomagnesemia (ED) Care Plan Goals: Problem: Fluid and electrolyte imbalance Goal: Maintain fluid and electrolyte balance Instructions: Monitor I/O as needed Obtain labs related to electrolytes Problem: Constipation Goal: Achieve optimal elimination pattern Instructions: Monitor frequency/type of bowel movement Adherence to bowel elimination regime Take laxative/enema as ordered Patient Disposition: HOME SELF-CARE Prescriptions: New potassium citrate 15 mEq tablet extended release 15 meq PO BID Qty: 20 0RF Continued ondansetron 4 mg tablet,disintegrating 4 mg PO Q8H PRN (Reason: nausea and vomiting) Qty: 30 0RF valsartan 160 mg tablet 160 mg PO DAILY Qty: 90 3RF levothyroxine 88 mcg tablet 88 mcg PO DAILY Qty: 90 3RF citalopram 10 mg tablet 10 mg PO DAILY Qty: 90 1RF pantoprazole [Protonix] 40 mg tablet,delayed release (DR/EC) 40 mg PO BID Qty: 60 1RF medroxyprogesterone 150 mg/mL suspension 150 mg IM [id number] Patient Comments: INJECT 1 ML INTO THE APPROPRIATE MUSCLE DIRECTED BY PRESCRIBER EVERY 3 (THREE) MONTHS. fluticasone propionate 50 mcg/actuation spray,suspension 1 spray intranasal BID PRN (Reason: nasal congestion) Rx Instructions: administer into each nostril insulin lispro [Humalog KwikPen Insulin] 100 unit/mL insulin pen 2.5 unit subcut .COMPLEX Patient Comments: this is actually given as 3.5 units continuously per hour through omnipod and she gives herself boluses per carb counting, max of 45 units tid with meals Rx Instructions: this is actually given as 3.5 units continuously per hour through omnipod and she gives herself boluses per carb counting, max of 45 units tid with meals amlodipine 5 mg tablet 5 mg PO QDAY Qty: 90 0RF Rx Instructions: dr francois metformin 1,000 mg tablet 500 mg PO QDAY Qty: 180 1RF tetracycline 500 mg capsule 500 mg PO QDAY 14 Days Qty: 14 0RF metronidazole 500 mg tablet 500 mg PO QID Qty: 56 0RF buspirone 10 mg tablet 10 mg PO BID Qty: 60 1RF No Action (DME) Omnipod 5 G6-G7 Pods (Gen 5) Cartridge 1 ea subcut Q3D (DME) Dexcom G6 Transmitter Device See Rx Instructions .ROUTE Qty: 1 0RF Rx Instructions: As directed (DME) Dexcom G6 Sensor Device See Rx Instructions .ROUTE Qty: 3 0RF Rx Instructions: As directed Did you review [place] [employer] SET UP OPERATOR for ALL controlled substances?: Not Applicable Discussed opioids are addictive and Narcan is available by prescription or from pharmacy.: No Condition: Stable Referrals: SHILA SUMNER APRN [Primary Care Provider] - 02/06/25 1:30 pm
[2025-01-31] MEDS ORDERED: FLONASE NAS PRN (10:37)
[2025-01-31] MEDS: HUMALOG (10 ML VIAL) SUBCUT PRN (11:52)
[2025-01-31] MEDS: POTASSIUM CHLORIDE 20 MEQ/100 ML PREMIX 20 MEQ/100 ML BAG IV ONE (13:37)
[2025-01-31 14:20] VITALS: BP 125/75; PULSE 96; TEMP 97.2
[2025-01-31] MEDS: SYNTHROID PO ONE (15:10)
[2025-01-31 16:08] LABS: BLOOD UREA NITROGEN 4.7 mg/dL (7-17); CALCIUM 8.67 mg/dL (8.4-10.2); CARBON DIOXIDE 25.8 mmol/L (22-30.0); CHLORIDE 101.3 mmol/L (98-107); CREATININE 0.64 mg/dL (0.60-1.30); GLUCOSE 273.5 mg/dL (74-106); MAGNESIUM 2.1 mg/dL (1.6-2.3); POTASSIUM 3.29 mmol/L (3.5-5.1); SODIUM 138.2 mmol/L (134.5-145)
[2025-02-01] MEDS ORDERED: SYNTHROID PO SCH (09:00)
[2025-02-01] MEDS ORDERED: DIOVAN PO SCH (09:00)
== END 2025-01-31 17:21 | disposition home or self-care (01) ==
LOC: ED 18:55 → MEDSURG B 18:55
PROVIDERS: ADMIT Hospitalist; ATTEND Physician Assistant